=== PATIENT | male | born 1990 ===

== ENCOUNTER 2017-03-13 17:51 | Emergency (ER) | payer BC ==
--- NOTE | 2017-03-13 18:46 | UC ---
Complaint Male HPI - HPI Summary HPI Summary: 26 yo male with vague left testicular discomfort -06/10 has not limited his activity no dysuria/urgency/frequency no new partner no lifting no urethral d/c - History of Current Complaint Chief Complaint: UCGU Stated Complaint: PERSONAL Time Seen by Provider: 03/13/17 18:31 Hx Obtained From: Patient Onset/Duration: Gradual Onset, Lasting Days - 3-4 Timing: Constant Severity Initially: Mild Severity Currently: Mild Pain Intensity: 2 Pain Scale Used: 0-10 Numeric Location: Testicle - Left Aggravating Factor(s): Nothing Alleviating Factor(s): Nothing Associated Signs And Symptoms: Negative: Diaphoresis, Back Pain, Fever, Hematuria, Dysuria, Constipation, Blood in Stool, Rectal Pain, Nausea, Vomiting( # Of Episodes =), Penile Swelling, Penile Discharge - Risk Factors Testicular Torsion: Negative PMH/Surg Hx/FS Hx/Imm Hx Previously Healthy: Yes - Surgical History Surgical History: None - Family History Known Family History: Positive: Hypertension - Social History Alcohol Use: Occasionally Substance Use Type: None Smoking Status (MU): Never Smoked Tobacco Review of Systems Constitutional: Negative Skin: Negative Eyes: Negative ENT: Negative Respiratory: Negative Cardiovascular: Negative Gastrointestinal: Negative Genitourinary: Negative Motor: Negative Neurovascular: Negative Musculoskeletal: Negative Neurological: Negative Psychological: Negative Is Patient Immunocompromised?: No All Other Systems Reviewed And Are Negative: Yes Physical Exam Triage Information Reviewed: Yes Appearance: Well-Appearing, No Pain Distress, Well-Nourished Vital Signs: Initial Vital Signs Temp 98.6 F 03/13/17 18:01 Pulse 97 03/13/17 18:01 Resp 18 03/13/17 18:01 BP 143/84 03/13/17 18:01 Pulse Ox 99 03/13/17 18:01 Vital Signs Reviewed: Yes Eyes: Positive: Conjunctiva Clear ENT: Positive: Hearing grossly normal. Negative: Nasal congestion, Nasal drainage, Trismus, Muffled voice, Hoarse voice Neck: Positive: Supple, Nontender, No Lymphadenopathy Respiratory: Positive: Lungs clear, Normal breath sounds, No respiratory distress, No accessory muscle use Cardiovascular: Positive: RRR, No Murmur, Pulses Normal Abdomen Description: Positive: Nontender, No Organomegaly, Soft, Other: - circ/ no urethral d/c, no testicular mass noted, epidydmis not tender, bilateral creamatic reflexes. Negative: CVA Tenderness (R), CVA Tenderness (L), Hernia @ Bowel Sounds: Positive: Present Musculoskeletal: Positive: No Edema Neurological: Positive: Alert Psychological Exam: Normal Skin Exam: Normal Complaint Male Course/Dx - Course Course Of Treatment: pt decline being checked for stds here, said he prefers to have urologist order it. Advised to call Urologist in AM and let us know if he could not be seen this week. He has nothing to suggest torsion but was warned to go to ER should is pain increase or the testicle feel like it is being drawn up. He was told he was welcome to return for recheck if unable to get seen by urologist - Differential Dx/Diagnosis Provider Diagnoses: left testicular discomfort of uncertain cause Discharge - Discharge Plan Condition: Stable Disposition: HOME Patient Education Materials: Testicle Pain (ED) Referrals: Adolph Escobar MD [Medical Doctor] - As Soon As Possible Additional Instructions: if you are unable to get in to see the urologist in a timely fashion let us know..you are always welcome to return here on exam I felt no masses and saw nothing to suggest a torsed testicle If you develop marked pain and/or your testicle feels like it is being drawn up in the inguinal canal go directly to the ER as soon as possible
== END 2017-03-13 18:49 | disposition home or self-care (01) ==
LOC: UCEAST 17:51
DX: N50.812 Left testicular pain (principal)
CPT/HCPCS: 99201; G0463